=== PATIENT | male | born 1965 | race Caucasian/White ===

== ENCOUNTER 2016-02-27 01:45 | Inpatient (IN) | payer OTHER ==
[~2016-02-27] VITALS: Ht 170.2 cm; Wt 89.5 kg
[~2016-02-27 01:45] MED LIST: ALDACTONE25 MG PO; APRESOLINE25 MG PO; ASPIRIN EC325 MG PO; ATORVASTATIN CA40 MG PO; CLOPIDOGREL75 MG PO; Chronulac,Cephulac,E PO; DIVALPROEX SOD500 MG PO; FAMOTIDINE20 MG PO; FLAGYL500 MG PO; FOLIC ACID0.4 MG PO; FOLIC ACID1 MG PO; FUROSEMIDE20 MG PO; GENERLAC10 GM/15 M PO; K-DUR20 MEQ PO; KEPPRA250 MG PO; KEPPRA500 MG PO; LACTULOSE10 GM/151 PO; LASIX20 MG PO; LEVETIRACETAM500 MG PO; LIPITOR40 MG PO; LORAZEPAM2 MG/1 M1 IV; MAG-OXIDE400 MG PO; MAGNESIUM400 M1 PO; MEGACE40 MG PO; MINOCIN100 MG PO; OXAPROZIN600 MG PO; PANTOPRAZOLE SO40 MG PO; THIAMINE HCL100 MG PO; VIMPAT50 MG PO; VITAMIN B-1100 MG PO; XIFAXAN550 MG PO
[2016-02-27 02:11] LABS: EOSINOPHIL (%) 4.3 % (0-5); EOSINOPHIL COUNT 0.2 K/uL (0-0.3); IMMATURE GRANULOCYTE (%) 0.2 % (0.0-0.7); IMMATURE GRANULOCYTE COUNT 0.1 K/uL; LYMPHOCYTE COUNT 2.1 K/uL (1.0-2.8); MCH 31.2 PG (29.0-34.0); MCHC 34.1 G/DL (30.0-36.0); MCV 91.3 FL (86-99); MEAN PLAT.VOLUME 9.6 uM^3 (9.0-12.4); MONOCYTE (%) 14.5 % (3-12); MONOCYTE COUNT 0.7 K/uL (0-0.8); NEUTROPHIL (%) 35.5 % (45-76); NEUTROPHIL COUNT 1.7 K/uL (1.8-6.4); PLATELET COUNT 82 K/uL (156-360); RBC DIS.WIDTH-CV 15.3 % (11.8-14.6); RBC DIS.WIDTH-SD 49.6 % (39-53); RED BLOOD COUNT 4.49 M/uL (4.00-5.50); WHITE BLOOD COUNT 4.7 K/uL (4.1-10.2)
[2016-02-27 02:22] LABS: INTER. NORMALIZED RATIO 1.1; PROTHROMBIN TIME 11.6 (9.2-11.2); PTT 26.6 (25-32)
[2016-02-27 02:25] LABS: AMYLASE 95 IU/L (1-118); CHLORIDE 108 mEq/L (99-109); POTASSIUM 4.9 mEq/L (3.7-5.4); SODIUM 141 mEq/L (136-147)
[2016-02-27 02:27] LABS: GLUCOSE 101 mg/dL (70-99)
[2016-02-27 02:28] LABS: ANION GAP 9 MEQ/L (2-14)
[2016-02-27 02:30] LABS: GFR ESTIMATE (CALCULATED) > 59 mL/min/; SERUM ETHYL ALCOHOL < 10 mg/dL
[2016-02-27 02:31] LABS: UREA NITROGEN (BUN) 13 mg/dL (9-23)
[2016-02-27 02:33] LABS: LIPASE 39 U/L (1.0-51.0)
[2016-02-27 02:35] LABS: TROP-I INTERPRETATION NEGATIVE; TROPONIN-I < 0.01 ng/mL (0.0-0.30)
[2016-02-27 05:02] LABS: ADD MIUA? NO; BILIRUBIN NEGATIVE; BLOOD NEGATIVE; COLOR DK YELLOW ((YELLOW)); GLUCOSE (STRIP) NEGATIVE; KETONES NEGATIVE; LEUKOCYTES NEGATIVE; NITRITE NEGATIVE; PROTEIN (STRIP) NEGATIVE; SPECIFIC GRAVITY 1.042 (1.000-1.030); UCUL ADDED? NO; UROBILINOGEN 0.2 MG/DL (0.2-1.0)
[2016-02-27 05:12] LABS: AMPHETAMINE NEGATIVE (500 ng/mL); BARBITURATES NEGATIVE (200 ng/mL); BENZODIAZEPINES NEGATIVE (150 ng/mL); COCAINE NEGATIVE (150 ng/mL); INTERNAL CONTROLS VALID? YES; METHADONE NEGATIVE (200 ng/mL); METHAMPHETAMINE NEGATIVE (500 ng/mL); OPIATES (MORPHINE) NEGATIVE (100 ng/mL); OXYCODONE NEGATIVE (100 ng/mL); PHENCYCLIDINE NEGATIVE (25 ng/mL); PROPOXYPHENE NEGATIVE (300 ng/mL); THC CANNABINOIDS NEGATIVE (50 ng/mL); TRICYCLIC ANTIDEPRESSANTS NEGATIVE (300 ng/mL)
[2016-02-27 07:15] VITALS: BP 142/80
[2016-02-27 07:20] VITALS: BP 142/80
[2016-02-27 15:38] VITALS: BP 122/66
[2016-02-27 20:00] VITALS: BP 133/78
[2016-02-27] MEDS ORDERED: CORGARD40 MG PO (21:44)
[2016-02-28] VITALS (7 sets, daily range): BP systolic 100–128; BP diastolic 57–74
[2016-02-29 04:00] VITALS: BP 105/68
[2016-02-29 05:47] LABS: ALKALINE PHOSPHATASE 48 IU/L (3-129); ANION GAP 7 MEQ/L (2-14); CHLORIDE 108 MEQ/L (99-109); GFR ESTIMATE (CALCULATED) > 59 mL/min/; GLUCOSE 89 mg/dL (70-99); POTASSIUM 4.3 MEQ/L (3.7-5.4); SAMPLE HEMOLYSIS CHECK 0; SAMPLE ICTERIC CHECK 0; SAMPLE LIPEMIA CHECK 0; SODIUM 136 MEQ/L (136-147); TOTAL BILIRUBIN 0.6 MG/DL (0.0-1.0); UREA NITROGEN (BUN) 8 mg/dL (9-23)
[2016-02-29 06:12] LABS: MCH 30.7 PG (29.0-34.0); MCHC 33.7 G/DL (30.0-36.0); MCV 91.1 FL (86-99); MEAN PLAT.VOLUME 10.5 uM^3 (9.0-12.4); PLATELET COUNT 75 K/uL (156-360); RBC DIS.WIDTH-CV 15.2 % (11.8-14.6); RBC DIS.WIDTH-SD 50.8 % (39-53); RED BLOOD COUNT 3.84 M/uL (4.00-5.50); WHITE BLOOD COUNT 3.6 K/uL (4.1-10.2)
[2016-02-29 07:42] VITALS: BP 101/57
[2016-02-29 12:30] VITALS: BP 108/59
[2016-02-29 15:07] VITALS: BP 101/64
[2016-02-29 19:26] VITALS: BP 125/72
[2016-03-01 00:19] VITALS: BP 105/76
[2016-03-01 04:00] VITALS: BP 105/68
[2016-03-01 06:35] LABS: HEMATOCRIT 36.5 % (38.0-50.0); MCH 30.7 PG (29.0-34.0); MCHC 33.7 G/DL (30.0-36.0); MEAN PLAT.VOLUME 10.2 uM^3 (9.0-12.4); PLATELET COUNT 78 K/uL (156-360); RBC DIS.WIDTH-CV 15.3 % (11.8-14.6); RBC DIS.WIDTH-SD 51.1 % (39-53); RED BLOOD COUNT 4.01 M/uL (4.00-5.50)
[2016-03-01 06:59] LABS: ANION GAP 9 MEQ/L (2-14); CHLORIDE 108 MEQ/L (99-109); GFR ESTIMATE (CALCULATED) > 59 mL/min/; GLUCOSE 109 mg/dL (70-99); POTASSIUM 3.9 MEQ/L (3.7-5.4); SAMPLE HEMOLYSIS CHECK 0; SAMPLE ICTERIC CHECK 0; SAMPLE LIPEMIA CHECK 0; SODIUM 139 MEQ/L (136-147); UREA NITROGEN (BUN) 9 mg/dL (9-23)
[2016-03-01 07:48] VITALS: BP 102/55
[2016-03-01 11:00] VITALS: BP 101/57
[2016-03-01 15:00] VITALS: BP 104/60
[2016-03-01 20:16] VITALS: BP 124/70
[2016-03-02 00:24] VITALS: BP 96/52
[2016-03-02 04:12] VITALS: BP 100/57
[2016-03-02 06:15] LABS: HEMATOCRIT 35.5 % (38.0-50.0); MCH 31.5 PG (29.0-34.0); MCHC 34.4 G/DL (30.0-36.0); MCV 91.7 FL (86-99); MEAN PLAT.VOLUME 10.6 uM^3 (9.0-12.4); PLATELET COUNT 74 K/uL (156-360); RBC DIS.WIDTH-CV 15.2 % (11.8-14.6); RBC DIS.WIDTH-SD 51.3 % (39-53); RED BLOOD COUNT 3.87 M/uL (4.00-5.50); WHITE BLOOD COUNT 3.7 K/uL (4.1-10.2)
[2016-03-02 06:59] LABS: ALKALINE PHOSPHATASE 47 IU/L (3-129); ANION GAP 7 MEQ/L (2-14); CHLORIDE 109 MEQ/L (99-109); GFR ESTIMATE (CALCULATED) > 59 mL/min/; GLUCOSE 91 mg/dL (70-99); POTASSIUM 4.3 MEQ/L (3.7-5.4); SAMPLE HEMOLYSIS CHECK 0; SAMPLE ICTERIC CHECK 0; SAMPLE LIPEMIA CHECK 0; SODIUM 139 MEQ/L (136-147); TOTAL BILIRUBIN 0.7 MG/DL (0.0-1.0); UREA NITROGEN (BUN) 8 mg/dL (9-23)
[2016-03-02 07:50] VITALS: BP 104/68
[2016-03-02 11:59] VITALS: BP 116/66
[2016-03-02 17:20] VITALS: BP 107/57
[2016-03-02 19:35] VITALS: BP 111/64
[2016-03-03] VITALS (7 sets, daily range): BP systolic 109–129; BP diastolic 57–72
[2016-03-03 06:18] LABS: HEMATOCRIT 35.5 % (38.0-50.0); MCH 30.8 PG (29.0-34.0); MCHC 33.8 G/DL (30.0-36.0); MEAN PLAT.VOLUME 10.3 uM^3 (9.0-12.4); PLATELET COUNT 71 K/uL (156-360); RBC DIS.WIDTH-CV 15.3 % (11.8-14.6); WHITE BLOOD COUNT 3.6 K/uL (4.1-10.2)
[2016-03-03 06:47] LABS: ALKALINE PHOSPHATASE 56 IU/L (3-129); ANION GAP 8 MEQ/L (2-14); CHLORIDE 108 MEQ/L (99-109); GFR ESTIMATE (CALCULATED) > 59 mL/min/; POTASSIUM 4.2 MEQ/L (3.7-5.4); SAMPLE HEMOLYSIS CHECK 0; SAMPLE ICTERIC CHECK 0; SAMPLE LIPEMIA CHECK 0; SODIUM 138 MEQ/L (136-147); UREA NITROGEN (BUN) 8 mg/dL (9-23)
[2016-03-03 06:48] LABS: GLUCOSE 120 mg/dL (70-99); TOTAL BILIRUBIN 0.4 MG/DL (0.0-1.0)
== END 2016-03-03 19:32 | DRG 442 ==
LOC: EME → EDBD 01:45 → EDOF 04:49 → 4EAST 04:49
PROVIDERS: Emergency Medicine; Internal Medicine
DX: K72.90 Hepatic failure, unspecified without coma (principal); E72.20 Disorder of urea cycle metabolism, unspecified; E87.1 Hypo-osmolality and hyponatremia; D69.6 Thrombocytopenia, unspecified; K76.6 Portal hypertension; K70.30 Alcoholic cirrhosis of liver without ascites; F80.2 Mixed receptive-expressive language disorder; I10 Essential (primary) hypertension; R27.0 Ataxia, unspecified; E66.9 Obesity, unspecified; B19.20 Unspecified viral hepatitis C without hepatic coma; G40.909 Epilepsy, unspecified, not intractable, without status epilepticus; Z86.73 Personal history of transient ischemic attack (TIA), and cerebral infarction without residual deficits
CPT/HCPCS: 70450; 70496; 70498; 71010; 80048; 80053; 81003; 82140; 82150; 83690; 84484; 85025; 85027; 85610; 85730; 86850; 86900; 86901; 93005; 97530 GO; 99281; 99284; G0480; J1650; J7030